=== PATIENT | male | born 1960 | race Caucasian/White ===

== ENCOUNTER 2016-08-29 11:00 | Inpatient (IN) | payer OTHER ==
--- NOTE | ~2016-08-29 | PN ---
Unit #: [id number] #: [id number] Patient: SULAIMAN FRY [id number] [facility] [address] [place] [address] [id number] I MR#: [id number] NAME: SULAIMAN FRY ROOM: [facility] Age: 56 Sex: M Admission Date: 08/29/2016 : 1960 Attending Physician: Ollie Isaac M.D. Admitting Physician: Ollie Isaac M.D. Primary Care Physician: Primary Care Physician Lena THRASHER PROGRESS NOTES DATE 09/02/2016 DISCUSSION Mr. Fry is a 56-year-old, white male who was seen today and chart was reviewed and case was discussed with the staff. He reports feeling very anxious, about he is going to outside of the hospital and where he is going to go and as such social worker has been asked to help work with discharge planning. Meanwhile, he has been taking the medication and tolerating them fairly well with no reported side effects. MENTAL STATUS EXAM Middle-aged white male who was casually dressed with fair personal hygiene, appears to be in no acute distress or discomfort. He was awake and alert on interaction with intact orientation. His mood was anxious with congruent affect. He denies any suicidal or homicidal ideation. Also, denies any auditory or visual hallucinations. His insight and judgement remains slightly impaired. TREATMENT PLAN 1. We will continue him on his current medications and treatment protocol. We will monitor his response to the medication and make further adjustments as needed. 2. We will continue to follow up. Dictated by... Kathe Pena/pauly TD: 09/03/2016 04:01 JOB #: [id number] Unit #: [id number] #: [id number] Patient: SULAIMAN FRY PROGRESS NOTES Page 1 of 1 X Ollie Isaac MD PROGRESS NOTE
--- NOTE | ~2016-08-29 | PN ---
Unit #: [id number] #: [id number] Patient: SULAIMAN FRY [id number] [facility] [address] [place] [address] [id number] I MR#: [id number] NAME: SULAIMAN FRY ROOM: [facility] Age: 56 Sex: M Admission Date: 08/29/2016 : 1960 Attending Physician: Ollie Isaac M.D. Admitting Physician: Ollie Isaac M.D. Primary Care Physician: Primary Care Physician Lena CARLTON NOTES DATE September 01, 2016 DISCUSSION Mr. Fry is a 56-year-old white male, who was seen today and chart was reviewed and the case was discussed with the staff. He has been anxious, withdrawn, and was sent out to the emergency room yesterday after he said he had pain in his legs and DVT was ruled out and he was transferred back to us. Meanwhile, he has been taking the medications and tolerating them fairly well with no reported side effects. MENTAL STATUS EXAMINATION Middle-aged white male, who was casually dressed with fair personal hygiene and appears to be in no acute distress or discomfort. He was awake and alert with intact orientation. His mood was anxious with a congruent affect. He denies any suicidal or homicidal ideations. His insight and judgment remain significantly impaired. TREATMENT PLAN 1. We will continue him on his current medications and treatment protocol, and will monitor his response, and make further adjustments as needed. 2. We will continue to followup. Dictated by... Kathe Pena/mateo TD: 09/02/2016 09:19 JOB #: [id number] Unit #: [id number] #: [id number] Patient: SULAIMAN FRY KINMELINDA BIANKA NOTES Page 1 of 1 X Ollie Isaac MD PROGRESS NOTE
--- NOTE | ~2016-08-29 | CO ---
Unit #: [id number] #: [id number] Patient: SULAIMAN FRY [id number] [place] [address] [id number] I MR#: [id number] NAME: SULAIMAN FRY ROOM: [facility] Age: 56 Sex: M Admission Date: 08/29/2016 : 1960 Attending Physician: Ollie Isaac M.D. Primary Care Physician: Primary Care Physician No Consultation Date: 09/01/2016 CONSULTATION REPORT ORDERING PROVIDER Dr. Isaac. REASON FOR CONSULT Left lower extremity pain and swelling. SUBJECTIVE Yesterday, the patient started with left lower leg pain and swelling. Pain was in his calf. There is no redness and it was tender to palpation. OBJECTIVE Left leg mildly more edematous than the right. No tenderness to palpation. Homans sign negative. Vital signs are stable. The patient was sent out for a stat venous Doppler, which was negative. ASSESSMENT Left lower extremity pain. PLAN Plan is to continue to monitor. Dictated by... Kelly Cornell/cruz TD: 09/01/2016 22:57 JOB #: [id number] CONSULTATION REPORT Page 1 of 1 X JAZZMINE LI APRN CONSULTATION REPORT
--- NOTE | ~2016-08-29 | DS ---
Unit #: [id number] #: [id number] [facility] [id number] [facility] [address] [place] [address] [id number] I MR#: [id number] NAME: SULAIMAN FRY ROOM: P183 Age: 56 Sex: M Admission Date: 08/29/2016 : 1960 Discharge Date: 09/03/2016 Attending Physician: Ollie Isaac M.D. Primary Care Physician: Primary Care Physician No DISCHARGE SUMMARY IDENTIFYING DATA Mr. Fry is a 56-year-old white male who is a resident of [place], [place] and was self-referred to the hospital on a voluntary basis as a transfer from [facility] Emergency Room, where he presented with a chest pain and stated "I'm addicted to opioids and I want treatment." DISCHARGE DIAGNOSES Psychiatric: Opioid dependence, moderate and acute withdrawals; methamphetamine dependence, moderate; opioid-induced mood disorder. Medical: None. Stressors: Moderate psychosocial stressors. HISTORY OF PRESENT ILLNESS Please see initial psychiatric evaluation for details. PAST PSYCHIATRIC HISTORY Please see initial psychiatric evaluation for details. PAST MEDICAL HISTORY Please see initial psychiatric evaluation for details. HOSPITAL COURSE The patient was admitted to the adult chemical dependency unit at [facility] and was oriented to the hospital environment. Routine p.r.n. medications were initiated, and he was started back on his home medications and detox protocol was initiated as well. He was seen to be anxious, though was polite, pleasant, and cooperative with treatment recommendations and was taking the medications regularly and was tolerating them fairly well and was able to come out of the detox without any complications and was willing to continue treatment on an outpatient basis. He was denying any suicidal or homicidal ideations and was not seen to be a danger to self or anyone else, and as such, recommendation for continued care on an outpatient basis was made and the patient was discharged from our care. DISCHARGE MEDICATIONS None. DISCHARGE CONDITION Stable. PROGNOSIS Fair. Unit #: [id number] #: [id number] Patient: SULAIMAN FRY Dictated by... Kathe Pena/cruz TD: 09/03/2016 07:01 JOB #: [id number] DISCHARGE SUMMARY Page 1 of 1 X Ollie Isaac MD DISCHARGE SUMMARY
--- NOTE | ~2016-08-29 | PA ---
Unit #: [id number] #: [id number] Patient: SULAIMAN FRY [id number] [facility] [address] [place] [address] [id number] I MR#: [id number] NAME: SULAIMAN FRY ROOM: P183 Age: 56 Sex: M Admission Date: 08/29/2016 : 1960 Date of Assessment: Attending Physician: Ollie Isaac M.D. Admitting Physician: Ollie Isaac M.D. PSYCHIATRIC ASSESSMENT DATE OF SERVICE 08/29/2016. IDENTIFYING DATA Mr. Fry is a 56-year-old white male who is a resident of [place], [place] and was self-referred to the hospital on a voluntary basis as a transfer from [facility] Emergency Room, where he presented for chest pain. CHIEF COMPLAINT "I'm addicted to opioids and I want treatment." HISTORY OF PRESENT ILLNESS Mr. Fry is a 56-year-old white male who presented himself to [facility] Emergency Room in [place], [place], stating that he has been having chest pain and stated that he is addicted to opioids and wants treatment and had a COWS of 15 indicating significant withdrawal from opioids. He reports he uses 100 dollars worth of heroin a day and has been using it intravenously and also has been mixing it with intravenous methamphetamine and often thinks of killing himself and he has considered overdosing. He reports significant consequences because of his drug addiction, stating that his son and ex- are supportive for him, but he has degenerative disk disease in the back. He does report increasing depression, anxiety, irritability, restlessness, feelings of hopelessness and helplessness, and suicidal ideation and as such, recommendation for inpatient level of care for safety and stabilization was made and the patient was transferred to us. SUBSTANCE ABUSE HISTORY The patient reports history of experimentation with abuse of alcohol, cocaine, and methamphetamine, but currently IV heroin has been his drug of choice, though he does admit that he has been mixing it with IV methamphetamine. PAST PSYCHIATRIC HISTORY The patient has not had any prior inpatient or outpatient psychiatric treatment. Currently, he is not active in any treatment program, is not seeing a psychiatrist, and is not taking any psychotropic medications. PAST MEDICAL HISTORY Degenerative disk disease. ALLERGIES Unit #: [id number] #: [id number] Patient: SULAIMAN FRY Sulfa and penicillin. PERSONAL AND SOCIAL HISTORY A 56-year-old white male who reports that he is and unemployed and describes himself to be homeless. MENTAL STATUS EXAMINATION Middle-aged white male who was casually dressed with fair personal hygiene, appears to be in no acute distress or discomfort. He was awake and alert on interaction with intact orientation to time, place, and person. His mood was anxious and depressed with a congruent affect. His speech was slow and restricted in content. His thought processes were disorganized with some looseness of associations, paranoid ideations, and suicidal ideations. His insight and judgment remain significantly impaired. DIAGNOSTIC IMPRESSION Psychiatric: Opioid dependence, moderate and acute withdrawals; methamphetamine dependence, moderate; opioid-induced mood disorder. Medical: None. Stressors: Moderate psychosocial stressors. TREATMENT PLAN 1. The patient has presented with a history of substance abuse and mood disorder and has been decompensating and will need inpatient hospitalization for detoxification, safety, and stabilization. We will start him back on his home medications. We will adjust the medications and monitor response. 2. Supportive therapy was provided to the patient. 3. Safe, structured, and nourishing environment will be provided. ESTIMATED LENGTH OF STAY 5 to 7 days. ABILITY TO HELP SELF Limited. WILLINGNESS TO HELP SELF The patient appears to be willing to help self. STRENGTHS 1. Communicative. 2. Cooperative. PROBLEMS 1. Chronic chemical dependency. 2. Chronic dysphoric symptoms. 3. Poor social support system. DISCHARGE CRITERIA This will be contingent upon the patient's ability to go through detox without having any significant withdrawal symptoms as well as his ability to stay safe to himself, particularly after discharge from the hospital. Dictated by... Ollie Isaac M.D. Unit #: [id number] #: [id number] Patient: SULAIMAN FRY IAA/modl TD: 08/30/2016 06:40 JOB #: [id number] PSYCHIATRIC ASSESSMENT Page 1 of 1 X Ollie Isaac MD X PSYCHIATRIC ASSESSMENT
--- NOTE | ~2016-08-29 | PN ---
Unit #: [id number] #: [id number] Patient: SULAIMAN FRY [id number] [facility] [address] [place] [address] [id number] I MR#: [id number] NAME: SULAIMAN FRY ROOM: [facility] Age: 56 Sex: M Admission Date: 08/29/2016 : 1960 Attending Physician: Ollie Isaac M.D. Admitting Physician: Ollie Isaac M.D. Primary Care Physician: Primary Care Physician Lena CARLTON NOTES DATE August 30, 2016 DISCUSSION Mr. Fry is a 56-year-old white male, who was seen today and chart was reviewed and the case was discussed with the staff. He reports persistent depression and anxiety, and meanwhile, he has been cooperative with the treatment recommendations and he has been taking the medications and tolerating them fairly well with no reported side effects. MENTAL STATUS EXAMINATION Middle-aged white male, who was casually dressed with fair personal hygiene and appears to be in no acute distress or discomfort. He was awake and alert on interaction with intact orientation. His mood is anxious with a congruent affect. He denies any suicidal or homicidal ideations. His insight and judgment remain slightly impaired. TREATMENT PLAN 1. We will adjust his psychotropic medications and treatment plan, and will monitor his response, and make further adjustments as needed. 2. We will continue to followup. Dictated by... Kathe Pena/mateo TD: 08/30/2016 09:36 JOB #: [id number] ANNA MARIE PROGRESS NOTES Page 1 of 1 X Ollie Isaac MD PROGRESS NOTE
--- NOTE | ~2016-08-29 | PN ---
Unit #: [id number] #: [id number] Patient: SULAIMAN FRY [id number] [facility] [address] [place] [address] [id number] I MR#: [id number] NAME: SULAIMAN FRY ROOM: [facility] Age: 56 Sex: M Admission Date: 08/29/2016 : 1960 Attending Physician: Ollie Isaac M.D. Admitting Physician: Ollie Isaac M.D. Primary Care Physician: Primary Care Physician Lena CARLTON NOTES DATE 08/31/2016 DISCUSSION Mr. Fry is a 46-year-old, white male who was seen today and chart was reviewed and case was discussed with the staff. He remains anxious, withdrawn, depressed and rather seclusive to himself. He has been cooperative with treatment recommendations. He has been taking medications and tolerating them fairly well with no reported side effects. MENTAL STATUS EXAM Middle-aged white male who was casually dressed with fair personal hygiene, appears to be in no acute distress or discomfort. He was awake and alert on interaction with intact orientation. His mood was anxious with congruent affect. His speech was slow and goal directed. He denies any suicidal or homicidal ideation. His insight and judgement remains slightly impaired. TREATMENT PLAN 1. We will continue him on his current medications and treatment protocol. We will monitor his response to the medication and make further adjustments as needed. 2. We will continue to follow up. Dictated by... Kathe Pena/pauly TD: 09/01/2016 02:54 JOB #: [id number] Unit #: [id number] #: [id number] Patient: SULAIMAN FRY PROGRESS NOTES Page 1 of 1 X Ollie Isaac MD PROGRESS NOTE
--- NOTE | ~2016-08-29 | HP ---
Unit #: [id number] #: [id number] Patient: SULAIMAN FRY [id number] [place] [address] [id number] I MR#: [id number] NAME: SULAIMAN FRY ROOM: 83 Age: 56 Sex: M Admission Date: 08/29/2016 : 1960 Attending Physician: Ollie Isaac M.D. Admitting Physician: Ollie Isaac M.D. Primary Care Physician: Primary Care Physician No HISTORY AND PHYSICAL HISTORY OF PRESENT ILLNESS Sulaiman is a 56 year old admitted to [facility] because of his abuse of opioids. He shoots heroin. PAST MEDICAL HISTORY 1. Long history of opioid abuse to include IV heroin. 2. Degenerative disc disease. 3. High blood pressure. 4. Hyperlipidemia. 5. COPD. 6. History of AAA. He reports he had a recent ultrasound. ALLERGIES Penicillin, sulfa. SOCIAL HISTORY Smokes greater than 1 pack per day. Denies alcohol. Admits to a long history of opioid abuse to include IV heroin. FAMILY HISTORY Medically noncontributory. REVIEW OF SYSTEMS CONSTITUTIONAL: No fever or chills. HEENT: Denies any sore throat, ear pain or runny nose. CARDIOVASCULAR: Denies chest pain, irregular heart rhythm or palpitations. CHEST: Denies shortness of breath or cough. No hemoptysis. GASTROINTESTINAL: Denies nausea, vomiting, diarrhea or chronic constipation. ENDOCRINE: Denies history of increased thirst or urination. No recent significant weight loss or gain. GENITOURINARY: Denies dysuria, frequency, or hematuria. SKIN: Denies any rashes. HEMATOLOGIC: Denies history of increased bleeding or bruising. MUSCULOSKELETAL: Denies any hot, swollen joints. No generalized muscle pain. NEUROLOGIC: Denies problems with vision or speech. No frequent, severe headaches. No numbness, tingling or weakness in any extremities. Denies loss of bladder or bowel control. CURRENT MEDICATIONS 1. Detox protocol. 2. Symbicort b.i.d. Unit #: [id number] #: [id number] Patient: SULAIMAN FRY PHYSICAL EXAMINATION GENERAL: Alert, very thin, in no apparent distress. VITAL SIGNS: Blood pressure 110/72, heart rate 100, respirations 16, temperature 98.6. WEIGHT: 155. HEIGHT: 6 feet 0 inches. SKIN: Warm and dry without rash or lesion. HEENT: Normocephalic. TMs not viewed. Oral and nasal passages clear. Conjunctivae clear. PERRLA. EOMs intact. NECK: Supple without lymphadenopathy or thyromegaly. HEART: Regular rate and rhythm without murmur. LUNGS: Clear. ABDOMEN: Soft, nontender. : Not done. EXTREMITIES: No evidence of cyanosis, clubbing or edema. Moves all without focal deficit. NEUROLOGICAL: Grossly within normal limits. Cranial Nerves: II: Visual johnson are intact. III, IV AND : Extraocular movements are intact. Pupils are equal, round and reactive to light. V: Facial sensation is grossly normal. VII: Facial movements and expression are normal. VIII: Auditory acuity grossly intact. IX, X: Uvula is midline. Phonation is normal. XI: Patient shrugs shoulders and turns head normally. XII: Tongue protrudes in the midline. Sensory and Motor Function: Sensory and motor sensation is grossly normal. Motor: moves all extremities well. Coordination: Gait is normal. Deep Tendon Reflexes: Intact. IMPRESSION Psychiatric admission. RECOMMENDATIONS PSYCHIATRIC: Per psychiatrist. MEDICAL: See no contraindication to participate in facility's activities. MEDICAL PROGNOSIS Good. MEDICAL CONDITION Stable. Dictated by... Ciara WallerAChristopher-Roberto Carlos. for Kathe Goins/aaliyah TD: 08/30/2016 21:58 JOB #: [id number] Unit #: [id number] #: [id number] Patient: SULIAMAN FRY HISTORY AND PHYSICAL Page 1 of 1 X Christy Cherry HISTORY AND PHYSICAL
[2016-08-30 09:49] LABS: URINE APPEARANCE CLEAR; URINE BILIRUBIN NEG (NEG); URINE BLOOD NEG (NEG); URINE COLOR YELLOW; URINE GLUCOSE 250 MG/DL (NEG); URINE KETONE NEG (NEG); URINE LEUKOCYTE ESTERASE NEG (NEG); URINE NITRATE NEG (NEG); URINE PROTEIN NEG (NEG)
[2016-08-30 10:14] LABS: AMPHETAMINE NEG (NEG); BARBITURATES NEG (NEG); BENZODIAZEPINES NEG (NEG); COCAINE NEG (NEG); MARIJUANA NEG (NEG); OPIATES NEG (NEG); TRICYCLIC ANTIDEPRESSANTS NEG (NEG); U METHADONE NEG (NEG)
== END 2016-09-03 12:00 | disposition hospice, home (50) | DRG 897 ==
LOC: P1E 16:57
PROVIDERS: Psychiatry & Neurology Psychiatry
PROC: HZ2ZZZZ Detoxification Services for Substance Abuse Treatment (ICD-10-PCS; principal; 2016-08-29)
DX: F11.23 Opioid dependence with withdrawal (principal); F13.20 Sedative, hypnotic or anxiolytic dependence, uncomplicated; F11.24 Opioid dependence with opioid-induced mood disorder; Z88.2 Allergy status to sulfonamides; Z88.0 Allergy status to penicillin; E78.5 Hyperlipidemia, unspecified; J44.9 Chronic obstructive pulmonary disease, unspecified; F17.210 Nicotine dependence, cigarettes, uncomplicated
CPT/HCPCS: 80307; 81003; 86592

== ENCOUNTER 2016-08-31 20:11 | Emergency (ER) | payer OTHER ==
--- NOTE | ~2016-08-31 | US85 ---
[facility] A Service of [facility] RADIOLOGY TEXT RESULTS PATIENT: SULAIMAN FRY LOCATION: [facility] : 58 UNIT #: [id number] AGE: [address]: Kirt Phillips MD SEX: M ORDER DR: [id number] [facility] [address] [facility]. [place], [place] [address] [id number] MR#: [id number] Acc #: [id number] NAME: SULAIMAN FRY : 1960 SEX: M STUDY DATE/TIME: 08/31/2016 21:09 UNIT: [facility] ROOM: STUDY DESCRIPTION: [employer] Attending Physician: Kirt Phillips M.D. Ordering Physician: Kirt Phillips M.D. Primary Care Physician: No Primary Care Physician MEDICAL IMAGING REPORT This report is preliminary unless electronic signature is present EXAM Venous Doppler ultrasound, left leg, 08/31/2016 HISTORY A 56-year-old male in the ED complaining of 1-day history of left leg pain and swelling/edema. TECHNIQUE Venous ultrasound examination of the left lower extremity was performed using grayscale, spectral Doppler and color flow Doppler imaging. FINDINGS The examination is negative. There is no evidence of left lower extremity deep venous thrombus from the groin to the lower calf. Visualized greater saphenous vein is also patent. IMPRESSION Negative examination. No evidence of left lower extremity deep venous thrombosis. Dictated by... Mariusz Askew M.D. THIS IS AN ELECTRONICALLY VERIFIED REPORT Mariusz Askew M.D. at 09/01/2016 9:32 PM PASTORA/jacinta TD: 09/01/2016 14:37 JOB #: [id number] MEDICAL IMAGING REPORT [facility] A Service [facility] RADIOLOGY TEXT RESULTS PATIENT: SULAIMAN FRY LOCATION: [facility] : 58 UNIT #: [id number] AGE: [address]: Kirt Phillips MD SEX: M ORDER DR: Page 1 of 1 COPY
== END 2016-09-01 00:17 ==
LOC: CED 20:11
DX: M79.605 Pain in left leg (principal); J44.9 Chronic obstructive pulmonary disease, unspecified; E78.5 Hyperlipidemia, unspecified; I10 Essential (primary) hypertension; F17.200 Nicotine dependence, unspecified, uncomplicated; Z88.0 Allergy status to penicillin; Z88.2 Allergy status to sulfonamides
CPT/HCPCS: 93971; 99284